=== PATIENT | male | born 1975 | race Caucasian/White ===

== ENCOUNTER → 2020-12-14 08:17 | Outpatient (CLI) | payer BC, SELFPAY ==
[2020-12-14 19:11] LABS: Alanine Aminotransferase 33 IU/L (<50); Albumin 4.3 g/dL (3.5-5.0); Albumin Globulin Ratio 1.4 (1.0-2.8); Alkaline Phosphatase 66 U/L (38-126); Aspartate Aminotransferase 26 IU/L (17-59); Bilirubin Total 0.3 mg/dL (0.2-1.3); Blood Urea Nitrogen 15 mg/dL (9-20); Calcium 9.8 mg/dL (8.4-10.2); Carbon Dioxide 28 mmol/L (22-32); Chloride 104 mmol/L (98-107); Cholesterol 205 mg/dL (140-199); Estimated Glomerular Filt Rate > 60.0 mL/min (>60); Glucose 102 mg/dL (70-100); HDL Cholesterol 38 mg/dL (40-60); HEMOLYSIS < 15 (0-50); LDL Cholesterol Calculated 146 mg/dL (<100); Potassium 4.3 mmol/L (3.4-5.1); Sodium 140 mmol/L (137-145); Total Protein 7.3 g/dL (6.3-8.2); Triglycerides 104 mg/dL (35-150)
[2020-12-14 19:16] LABS: Add Manual Diff / Slide Review NO; Basophils Absolute Auto 100 /uL (0-100); Basophils Percent Auto 0.9 % (0-2); Eosinophils Absolute Auto 200 /uL (0-450); Eosinophils Percent Auto 2.6 % (2-4); Hematocrit 39.3 % (41-53); Hemoglobin 12.9 g/dL (13.5-17.5); Lymphocytes Absolute Auto 2200 /uL (1100-4500); Lymphocytes Percent Auto 35.5 % (25-40); Mean Corpuscular HGB Conc 32.7 % (30-36); Mean Corpuscular Hemoglobin 28.9 PG (26-34); Mean Corpuscular Volume 88.2 fL (80-100); Monocytes Absolute Auto 400 /uL (0-900); Neutrophils Absolute Auto 3400 /uL (1500-7000); Platelet Count 220 X10^3/uL (150-400); Red Blood Cell Count 4.45 X10^6/uL (4.5-5.9); Red Cell Distribution Width 13.7 % (11.6-14.8); White Blood Cell Count 6.2 X10^3/uL (4.5-11.0)
== END ==
PROVIDERS: PCP Family Medicine; Visit Provider Family Medicine
DX: Z13.9 Encounter for screening, unspecified (principal); E78.2 Mixed hyperlipidemia
CPT/HCPCS: 80053; 80061; 85025

== ENCOUNTER → 2022-11-21 11:38 | Outpatient (CLI) | payer OTHER, SELFPAY ==
[2022-11-21 19:36] LABS: Alanine Aminotransferase 33 IU/L (<50); Albumin 4.5 g/dL (3.5-5.0); Albumin Globulin Ratio 1.3 (1.0-2.8); Alkaline Phosphatase 58 U/L (38-126); Aspartate Aminotransferase 24 IU/L (17-59); BUN Creatinine Ratio 27.5 (6-22); Bilirubin Total 0.4 mg/dL (0.2-1.3); Blood Urea Nitrogen 19 mg/dL (9-20); Calcium 9.8 mg/dL (8.4-10.2); Carbon Dioxide 31 mmol/L (22-32); Chloride 98 mmol/L (98-107); Cholesterol 240 mg/dL (140-199); Estimated Glomerular Filt Rate > 60 mL/min (>60); Globulin 3.5 g/dL (1.7-4.1); Glucose 103 mg/dL (70-100); HDL Cholesterol 46 mg/dL (40-60); HEMOLYSIS < 15 (0-50); LDL Cholesterol Calculated 150 mg/dL (<100); Potassium 4.3 mmol/L (3.4-5.1); Sodium 138 mmol/L (137-145); Triglycerides 218 mg/dL (35-150)
[2022-11-21 19:48] LABS: Add Manual Diff / Slide Review NO; Basophils Absolute Auto 0 /uL (0-100); Basophils Percent Auto 0.6 % (0-2); Eosinophils Absolute Auto 200 /uL (0-450); Eosinophils Percent Auto 2.5 % (2-4); Hematocrit 40.6 % (41-53); Hemoglobin 14.2 g/dL (13.5-17.5); Lymphocytes Absolute Auto 2100 /uL (1100-4500); Lymphocytes Percent Auto 33.7 % (25-40); Mean Corpuscular HGB Conc 34.9 % (30-36); Mean Corpuscular Hemoglobin 29.8 PG (26-34); Mean Corpuscular Volume 85.5 fL (80-100); Monocytes Absolute Auto 600 /uL (0-900); Monocytes Percent Auto 9.1 % (3-14); Neutrophils Absolute Auto 3300 /uL (1500-7000); Neutrophils Percent Auto 54.1 % (50-75); Platelet Count 223 X10^3/uL (150-400); Red Blood Cell Count 4.75 X10^6/uL (4.5-5.9); Red Cell Distribution Width 13.7 % (11.6-14.8); White Blood Cell Count 6.1 X10^3/uL (4.5-11.0)
[2022-11-21 20:06] LABS: Prostate Specific Antigen 0.906 ng/mL (0.10-4.00)
[2022-11-23 00:07] LABS: Labcorp Hemoglobin (Hb) A1c 5.9 % (4.8-5.6)
== END ==
PROVIDERS: PCP Family Medicine; Visit Provider Family Medicine
DX: E78.2 Mixed hyperlipidemia (principal); R10.9 Unspecified abdominal pain; R73.9 Hyperglycemia, unspecified; Z12.5 Encounter for screening for malignant neoplasm of prostate; Z13.1 Encounter for screening for diabetes mellitus; Z13.6 Encounter for screening for cardiovascular disorders
CPT/HCPCS: 80053; 80061; 83036; 84153; 85025

== ENCOUNTER 2023-04-02 09:00 | Day surgery (SDC) | payer BC, SELFPAY ==
--- NOTE | 2023-04-02 | PATH_ITS ---
[facility] Accession Number: [id number] No. of containers..03 Tissue . 01 Material submitted: . PART A: gastrointestinal site - GASTRIC POLYPS PART B: colon - DESCENDING POLYPS PART C: colon - RECTO SIGMOID POLYP . 01 Diagnosis: A. Gastric Polyps: Fundic gland polyps. No evidence of Helicobacter organisms on H/E stain. Negative for intestinal metaplasia. Negative for dysplasia and malignancy. . B. Descending Colon Polyps: Tubular adenoma x2. . C. Rectosigmoid Colon Polyp: Vegetable material. No tissue identified. MRV 04/10/20231917 Local . 01 Electronically signed: . Reji Schuster MD, PhD, Pathologist NPI- [id number] . 01 Gross description: . Part A: GASTRIC POLYPS: Received in formalin is 2 fragment(s) of minor, soft tissue measuring 0.3 x 0.2 x 0.2 cm to 0.3 x 0.2 x 0.1 cm submitted entirely in 1 cassette(s) Part B: DESCENDING POLYPS: Received in formalin is multiple fragment(s) of minor, soft tissue measuring 1.0 x 0.5 x 0.2 cm in aggregate submitted entirely in 1 cassette(s) Part C: RECTO SIGMOID POLYP: Received in formalin is 1 fragment(s) of minor, soft tissue measuring 0.1 x 0.1 x 0.1 cm submitted entirely in 1 cassette(s) /AAY 04/03/2023 0145 Local . 01 Pathologist provided ICD-10: K31.7, D12.4 . 01 CPT . 920919, 205669, 373268 Specimen Comment: A courtesy copy of this report has been sent to [phone] Performed at: 01 [facility] [address], [place], [place] [id number] MD Frederick Castillo MD Phone: [phone]
[2023-04-02 09:13] VITALS: BP 118/71; PULSE 67; RESP 16; TEMP 36.4; O2SAT 97; BMI 23.8
[2023-04-02] MEDS: LACTATED RINGERS 1,000 ML 125 ML IV (09:30)
--- NOTE | 2023-04-02 09:35 | P.HP_ITS ---
History of Present Illness History of Present Illness Date Patient Seen: 04/02/23 Time Patient Seen: 09:35 Chief complaint: EGD/Colonoscopy Narrative: I reviewed the note from Wily Connolly. Patient has improved with omeprazole. [facility] Social History household members: spouse Smoking Status: Never smoker alcohol intake: current Meds Home Medications and Allergies Home Medications Medication Instructions Recorded Confirmed Type bupropion HCl 300 mg 24 hr tablet, 300 mg PO QAM 11/30/20 04/02/23 History extended release (Wellbutrin XL) lisdexamfetamine 40 mg capsule 40 mg PO DAILY 11/30/20 04/02/23 History (Vyvanse) omeprazole 20 mg capsule,delayed 20 mg PO 11/08/22 11/08/22 History release Allergies Allergy/AdvReac Type Severity Reaction Status Date / Time No Known Drug Allergies Allergy Verified 11/08/22 15:33 hay fever Allergy Mild Uncoded 11/08/22 15:33 Review of Systems Review of Systems ROS: Yes All systems reviewed with the patient and are negative except as otherwise documented Exam Vital Signs (past 8 hours): - 04/02/23 09:13 Temperature 97.6 F Pulse Rate 67 Respiratory Rate 16 Blood Pressure 118/71 Pulse Oximetry 97 Oxygen Delivery Method Room Air Oxygen Delivery Method Room Air Const General: cooperative HENMT Head: normal to inspection Eyes General: appearance normal, both eyes and all related structures Neck Neck: normal visual inspection Chest Chest: normal inspection of the chest Resp Effort & Inspection: normal respiratory effort Cardio Rate: regular rate GI Inspection: normal to inspection Skin General: no rashes or lesions noted Neuro General: patient alert and patient awake Extrem General: normal to inspection and no pedal edema Psych Appearance: grossly normal Assessment & Plan Assessment & Plan narrative: 47-year-old male with symptoms of reflux for the last couple of years. Diagnostic EGD is pursued today. Additionally we will pursue colonoscopy for colon cancer screening.
--- NOTE | 2023-04-02 09:37 | PM.PREOP ---
Pre-operative Note Interval Note History & Physical reviewed/Exam performed by Physician: Yes Changes to H&P: Yes ASA Class (for procedural sedation): I
--- NOTE | 2023-04-02 10:18 | P.OP.EGD&C_ITS ---
Operative Date/Time/Diagnoses Date of procedure: 04/02/23 Time of procedure: 10:18 Pre-op diagnosis: GERD and colon cancer screening Post-op diagnosis: same Procedure & Clinicians Study performed: EGD with biopsies and colonoscopy with hot and cold snare polypectomy Same procedure as scheduled: Yes Indications: GERD and colon cancer screening Surgeon: Lei Booth Procedure Notes SCOAP/Timeout: Done Procedure in detail: After the risks and benefits were explained, written and verbal informed consent was obtained. The patient was brought into the procedure room and placed into the left lateral decubitus position. Please see anesthesia notes for sedation details. The scope was introduced into the mouth through the bite block and advanced under direct visualization to the 2nd portion of the duodenum. The sc ope was slowly withdrawn carefully examining the mucosa for any defects or lesions. Retroflexed views were accomplished in the stomach. The stomach was decompressed, the scope was then removed from the patient who tolerated the procedure well. The patient was then turned around. A digital rectal exam was accomplished. The scope was introduced into the rectum and advanced to the cecum as identified by the appendiceal orifice and ileocecal valve. The scope was slowly withdrawn to carefully examine the mucosa for any defects or lesions. Multiple direct views were made through the dentate line for exclusion of pathology. The colon was decompressed. The scope was removed from the patient who tolerated the procedure well. Pediatric colonoscope Bowel prep adequate Scope withdrawal time: 10 minutes Sedation minutes: 33 Complications: none Impression: 1. Duodenum: This was normal from the bulb through to the 2nd portion with the exception of moderate tortuosity 2. Stomach: No ulcers no outlet obstruction. No mass lesions. A couple of benign-appearing diminutive polyps were sampled from the proximal gastric body region. Otherwise retroflexed views of the LES were unremarkable. 3. Esophagus: The squamocolumnar junction generally correlated with the top of the gastric folds. GEJ was at 40 cm from the incisors. No acute erosive changes no strictures no mass lesions. No endoscopic suggestion of Barretts. 4. Colon: In the descending colon there was an approximately 7 mm pedunculated polyp removed with hot snare. A little more proximal to this location was a diminutive 4 mm polyp removed with cold snare. In the rectosigmoid region there was a 4-5 mm sessile polyp also removed with cold snare. No additional pathology was appreciated throughout. Endoscopic diagnosis 1. Diminutive proximal gastric polyps 2. Otherwise visually unremarkable EGD 3. Small colon polyps Post-procedure Plan for aftercare: 1. Await histopathology 2. Continue anti-reflux therapy in taper down to famotidine 20 mg once daily as able. (this is [id number]). 3. The timing of repeat colonoscopy will be contingent on pathology results. Disposition: PACU
[2023-04-02 10:25] VITALS: BP 102/72; BP 99/67; PULSE 59; PULSE 67; RESP 12; RESP 22; TEMP 36.9; O2SAT 94; O2SAT 98
[2023-04-02 10:30] VITALS: BP 96/69; PULSE 68; RESP 11; O2SAT 99
[2023-04-02 10:40] VITALS: BP 96/69; PULSE 70; RESP 16; O2SAT 99
--- NOTE | 2023-04-02 10:50 | SUR.PHASEII ---
pt voided prior to departure, delay out dt pt wanting to sit a bit longer
== END 2023-04-02 11:18 | disposition home or self-care (01) ==
PROVIDERS: PCP Family Medicine; Referring Provider Internal Medicine Gastroenterology; Visit Provider Internal Medicine Gastroenterology
PROC: 0DJ08ZZ Inspection of Upper Intestinal Tract, Via Natural or Artificial Opening Endoscopic (ICD-10-PCS; CPT 43235; principal; 2023-04-02 10:00)
PROC: 0DJD8ZZ Inspection of Lower Intestinal Tract, Via Natural or Artificial Opening Endoscopic (ICD-10-PCS; CPT 45378; 2023-04-02 10:00)
DX: Z12.11 Encounter for screening for malignant neoplasm of colon (principal); K21.9 Gastro-esophageal reflux disease without esophagitis; K31.7 Polyp of stomach and duodenum; D12.4 Benign neoplasm of descending colon
CPT/HCPCS: 45385; 43239; J2704

== ENCOUNTER → 2023-11-23 15:17 | Outpatient (CLI) | payer OTHER, SELFPAY ==
--- NOTE | 2023-11-23 | DI.US.S_ITS ---
PROCEDURE: US ABDOMEN LIMITED INDICATIONS: RUQ pain TECHNIQUE: Real-time scanning was performed of the abdominal and retroperitoneal organs, with image documentation. COMPARISON: None. FINDINGS: Liver: The liver measures 13.8 cm in length and demonstrates increased echogenicity. Gallbladder: The gallbladder wall measures 2.7 mm in diameter. Multiple stones are layered in the fundus with shadowing. No pericholecystic fluid or sonographic Mathur sign. A 1.7 cm stone is visualized within the cystic duct. Biliary ducts: Intrahepatic bile ducts are non-dilated. Extrahepatic bile duct caliber measures 3.3 mm. Normal is 6-7 mm or less in diameter, or 10 mm or less post-cholecystectomy. Pancreas: Visualized portions of the pancreas are sonographically normal. The tail the pancreas is not visualized due to bowel gas. Miscellaneous: No free abdominal fluid. IMPRESSION: 1. Increased hepatic echogenicity noted likely related to fatty infiltration of the liver but other sources of hepatocellular disease cannot be excluded. 2. Cholelithiasis. Although there are no findings to suggest choledocholithiasis or acute cholecystitis at this time, a nonmobile 1.7 cm stone is present within the cystic duct. Dictated by: Monse Ingram M.D. on 11/23/2023 at 17:14 Approved by: Monse Ingram M.D. on 11/23/2023 at 17:17
== END ==
PROVIDERS: PCP Family Medicine; Referring Provider Physician Assistant; Visit Provider Physician Assistant
DX: K80.20 Calculus of gallbladder without cholecystitis without obstruction (principal); R10.11 Right upper quadrant pain
CPT/HCPCS: 76705

== ENCOUNTER → 2023-12-13 10:05 | Outpatient (CLI) | payer OTHER, SELFPAY ==
[2023-12-13 19:54] LABS: Add Manual Diff / Slide Review NO; Basophils Absolute Auto 0 /uL (0-100); Basophils Percent Auto 0.5 % (0-2); Eosinophils Absolute Auto 100 /uL (0-450); Eosinophils Percent Auto 2.9 % (2-4); Hematocrit 38.6 % (41-53); Lymphocytes Absolute Auto 1900 /uL (1100-4500); Lymphocytes Percent Auto 38.1 % (25-40); Mean Corpuscular HGB Conc 33.6 % (30-36); Mean Corpuscular Hemoglobin 29.8 PG (26-34); Mean Corpuscular Volume 88.6 fL (80-100); Monocytes Absolute Auto 400 /uL (0-900); Monocytes Percent Auto 8.1 % (3-14); Neutrophils Absolute Auto 2500 /uL (1500-7000); Neutrophils Percent Auto 50.4 % (50-75); Platelet Count 192 X10^3/uL (150-400); Red Blood Cell Count 4.36 X10^6/uL (4.5-5.9); Red Cell Distribution Width 13.6 % (11.6-14.8); White Blood Cell Count 4.9 X10^3/uL (4.5-11.0)
[2023-12-13 20:11] LABS: Alanine Aminotransferase 36 IU/L (<50); Albumin 4.7 g/dL (3.5-5.0); Albumin Globulin Ratio 1.7 (1.0-2.8); Alkaline Phosphatase 58 U/L (38-126); Aspartate Aminotransferase 24 IU/L (17-59); BUN Creatinine Ratio 25.3 (6-22); Bilirubin Total 0.8 mg/dL (0.2-1.3); Blood Urea Nitrogen 19 mg/dL (9-20); Calcium 9.6 mg/dL (8.4-10.2); Carbon Dioxide 31 mmol/L (22-32); Chloride 104 mmol/L (98-107); Cholesterol 205 mg/dL (140-199); Estimated Glomerular Filt Rate > 60 mL/min (>60); Globulin 2.7 g/dL (1.7-4.1); Glucose 96 mg/dL (70-100); HDL Cholesterol 45 mg/dL (40-60); HEMOLYSIS < 15 (0-50); LDL Cholesterol Calculated 135 mg/dL (<100); Potassium 4.2 mmol/L (3.4-5.1); Sodium 140 mmol/L (137-145); Total Protein 7.4 g/dL (6.3-8.2); Triglycerides 124 mg/dL (35-150)
[2023-12-13 20:19] LABS: Hemoglobin A1C% w Est Avg Glu 5.9 % (4.0-6.0)
== END ==
PROVIDERS: PCP Family Medicine; Visit Provider Family Medicine
DX: R73.03 Prediabetes (principal); K21.9 Gastro-esophageal reflux disease without esophagitis; E78.2 Mixed hyperlipidemia; K80.01 Calculus of gallbladder with acute cholecystitis with obstruction
CPT/HCPCS: 80053; 80061; 83036; 85025

== ENCOUNTER 2023-12-28 11:02 | Day surgery (SDC) | payer OTHER, SELFPAY ==
[2023-12-24 14:08] VITALS: BMI 21.7
--- NOTE | 2023-12-27 16:30 | PM.PREOP ---
Pre-operative Note Interval Note History & Physical reviewed/Exam performed by Physician: Yes Changes to H&P: No
[2023-12-28] VITALS (7 sets, daily range): BP systolic 105–146; BP diastolic 67–76; PULSE 52–77; RESP 16–18; TEMP 36.2–36.9; O2SAT 98–100; BMI 21.7
--- NOTE | 2023-12-28 | PATH_ITS ---
[facility] Accession Number: [id number] No. of containers..01 Tissue . 01 Material submitted: . gallbladder - GALLBLADDER . 01 Diagnosis: A. GALLBLADDER, CHOLECYSTECTOMY: Chronic cholecystitis and cholelithiasis. No evidence of malignancy. MRV 01/04/2024 1325 Local . 01 Electronically signed: . Chrissy Yeager MD, Pathologist NPI- [id number] . 01 Gross description: . Received in formalin with two identifiers and gallbladder, is an intact gallbladder 8.7 x 2.8 x 2.5 cm with an unremarkable external surface. The cystic duct margin is inked blue, and no pericystic lymph node is identified. The lumen contains dark green mucoid bile with yellow faceted calculi measuring up to 2.1 cm in greatest dimension, not grossly obstructing the cystic duct. The mucosa is green and velvety with no yellow discoloration, polyps, or lesions identified. The vallecillo average 0.1 cm thick. [employer] sections to include the cystic duct margin and full thickness sections are submitted in cassette A1. ([id number]) /MARIBEL 12/29/2023 2307 Local . 01 Pathologist provided ICD-10: K80.11 . 01 CPT . 692076 Specimen Comment: A courtesy copy of this report has been sent to [phone] Performed at: 01 [address] [address], [place], [place] [id number] MD Frederick Castillo MD Phone: [phone]
[2023-12-28] MEDS: LACTATED RINGERS 1,000 ML 42 ML IV (11:29)
[2023-12-28] MEDS: ACETAMINOPHEN 325 MG TABLET 975 MG PO (11:29)
--- NOTE | 2023-12-28 11:42 | PM.PREOP ---
Pre-operative Note Interval Note History & Physical reviewed/Exam performed by Physician: Yes Changes to H&P: No
[2023-12-28] MEDS: CEFAZOLIN 2 GM/100 ML PREMIX 100 ML IV (11:58)
--- NOTE | 2023-12-28 12:14 | SUR.OPER ---
Supine on padded OR bed, head on pillow, safety belt at thigh, Arms secured on padded arm board <90 degrees abduction. Legs uncrossed. Tape over blanket to secure lower legs.
[2023-12-28] MEDS: BUPIVACAINE 0.5% (PF) 30 ML, EPINEPHrine 0.15 MG INJ (12:17)
--- NOTE | 2023-12-28 12:42 | P.OP_ITS ---
Operative Date/Time/Diagnoses Date of procedure: 12/28/23 Time of procedure: 12:43 Pre-op diagnosis: Biliary colic Post-op diagnosis: same Procedure & Clinicians Procedure: Laparoscopic cholecystectomy Same procedure as scheduled: Yes Indications: Biliary colic Surgeon: Josefina Staton Click Yes if Unassisted: Yes Anesthesia Type: General and Local Operative Notes Findings: Normal-appearing gallbladder with large stones and small stones within. Closure Type: primary Specimen(s): other (Gallbladder) Estimated Blood Loss (mL): 20 Blood products transfused: none Procedure in detail: Preop diagnosis: Symptomatic cholelithiasis, biliary colic Postop diagnosis: Same Operative procedure: Laparoscopic cholecystectomy Anesthetic: General with ET tube intubation with local Surgeon: Katerin Staton MD Findings: Normal-appearing gallbladder with large and small stones within. Procedure: Patient placed in a supine position. Prepped and draped in sterile fashion to expose his abdomen. Infraumbilical port site was placed using open t echnique a 12 mm port. Insufflation began all the ports were placed under direct vision including a 5 mm port in the midepigastrium and 2 5 mm ports in the right lateral abdomen. Gallbladder was grasped pushed cephalad for exposure. Cystic duct was identified, dissected free, clipped twice proximally once distally and transected. Cystic artery was identified once distally twice proximally and transected. Gallbladder was removed from the fossa bed with electrocautery and excellent hemostasis. We had some spillage of bile into the abdomen which was suctioned out prior to end of the procedure. Gallbladder was placed into an Endo-Catch bag and pulled through the infraumbilical port site intact. Surveyed the abdomen for hemostasis. Irrigated to a clear return. And then removed all ports and began closure. Closure consisted of interrupted 0 Vicryl for fascial closure. Skin was closed with a running 4-0 Vicryl. Steri-Strips and sterile dressings were placed. Patient was awakened, extubated, taken to recovery room in stable condition. Needle, instrument, sponge counts were correct. Specimen: Gallbladder Blood loss: 20 mL Complications: none Post-operative Condition: stable Disposition: PACU
[2023-12-28] MEDS: fentaNYL 100 MCG/2 ML INJ (13:00)
[2023-12-28] MEDS: fentaNYL 100 MCG/2 ML INJ IV (13:10)
[2023-12-28] MEDS: ONDANSETRON 4 MG/2 ML INJ IV (13:36)
[2023-12-28] MEDS: KETOROLAC 30 MG/ML VIAL 15 MG IV (13:37)
[2023-12-28] MEDS: OXYCODONE IR 5 MG TABLET PO (13:41)
[2023-12-28] MEDS: hydrOXYzine 50 MG/ML INJ 25 MG IM (13:49)
== END 2023-12-28 14:44 | disposition home or self-care (01) ==
PROVIDERS: Surgery; PCP Family Medicine; Referring Provider Surgery; Visit Provider Surgery
PROC: 0FT44ZZ Resection of Gallbladder, Percutaneous Endoscopic Approach (ICD-10-PCS; CPT 47562; principal; 2023-12-28 11:00)
DX: K80.10 Calculus of gallbladder with chronic cholecystitis without obstruction (principal)
CPT/HCPCS: 47562; 82962; J0171; J0690; J1100; J1885; J2250; J2405; J2704; J3010; J3410; J3490

== ENCOUNTER → 2024-06-27 09:33 | Outpatient (CLI) | payer OTHER, SELFPAY ==
[2024-06-27 17:01] LABS: Add Manual Diff / Slide Review NO; Basophils Absolute Auto 0 /uL (0-100); Basophils Percent Auto 0.5 % (0-2); Eosinophils Absolute Auto 200 /uL (0-450); Eosinophils Percent Auto 2.8 % (2-4); Hematocrit 40.8 % (41-53); Hemoglobin 13.7 g/dL (13.5-17.5); Lymphocytes Absolute Auto 2100 /uL (1100-4500); Lymphocytes Percent Auto 35.3 % (25-40); Mean Corpuscular HGB Conc 33.7 % (30-36); Mean Corpuscular Hemoglobin 29.4 PG (26-34); Mean Corpuscular Volume 87.3 fL (80-100); Monocytes Absolute Auto 500 /uL (0-900); Monocytes Percent Auto 8.6 % (3-14); Neutrophils Absolute Auto 3100 /uL (1500-7000); Neutrophils Percent Auto 52.8 % (50-75); Platelet Count 206 X10^3/uL (150-400); Red Blood Cell Count 4.67 X10^6/uL (4.5-5.9); Red Cell Distribution Width 13.6 % (11.6-14.8); White Blood Cell Count 5.9 X10^3/uL (4.5-11.0)
[2024-06-27 17:05] LABS: HEMOLYSIS < 15 (0-50); Iron 91 ug/dL (49-181)
[2024-06-27 17:06] LABS: Alanine Aminotransferase 54 IU/L (<50); Albumin 4.4 g/dL (3.5-5.0); Albumin Globulin Ratio 1.3 (1.0-2.8); Alkaline Phosphatase 72 U/L (38-126); Aspartate Aminotransferase 31 IU/L (17-59); BUN Creatinine Ratio 22.1 (6-22); Bilirubin Total 0.4 mg/dL (0.2-1.3); Blood Urea Nitrogen 17 mg/dL (9-20); Calcium 9.5 mg/dL (8.4-10.2); Carbon Dioxide 30 mmol/L (22-32); Chloride 104 mmol/L (98-107); Cholesterol 248 mg/dL (140-199); Estimated Glomerular Filt Rate > 60 mL/min (>60); Globulin 3.5 g/dL (1.7-4.1); Glucose 104 mg/dL (70-100); HDL Cholesterol 57 mg/dL (40-60); HEMOLYSIS < 15 (0-50); LDL Cholesterol Calculated 174 mg/dL (<100); Potassium 4.3 mmol/L (3.4-5.1); Sodium 138 mmol/L (137-145); Total Protein 7.9 g/dL (6.3-8.2); Triglycerides 87 mg/dL (35-150)
[2024-06-27 17:07] LABS: Hemoglobin A1C% w Est Avg Glu 5.8 % (4.0-6.0)
[2024-06-27 17:15] LABS: Reticulocyte Count, Percent 0.7 % (0.9-2.6)
[2024-06-27 17:19] LABS: Percent Iron Saturation 33 % (20-50); Total Iron Binding Capacity 278 ug/dL (261-462); Transferrin 251 mg/dL (206-381)
[2024-06-27 17:59] LABS: Vitamin B12 834 pg/mL (239-931)
== END ==
PROVIDERS: PCP Family Medicine; Visit Provider Family Medicine
DX: R73.03 Prediabetes (principal); E78.2 Mixed hyperlipidemia; F32.9 Major depressive disorder, single episode, unspecified; F90.9 Attention-deficit hyperactivity disorder, unspecified type; Z82.49 Family history of ischemic heart disease and other diseases of the circulatory system
CPT/HCPCS: 80053; 80061; 82607; 83036; 83540; 83550; 85025; 85045

== ENCOUNTER → 2025-06-09 10:09 | Outpatient (CLI) | payer OTHER, SELFPAY ==
[2025-06-09 19:24] LABS: Add Manual Diff / Slide Review NO; Hematocrit 39.2 % (41-53); Hemoglobin 13.3 g/dL (13.5-17.5); Lymphocytes Absolute Auto 2100 /uL (1100-4500); Mean Corpuscular HGB Conc 34.1 % (30-36); Mean Corpuscular Hemoglobin 29.7 PG (26-34); Mean Corpuscular Volume 87.3 fL (80-100); Platelet Count 193 X10^3/uL (150-400)
[2025-06-09 19:32] LABS: Blood Urea Nitrogen 19 mg/dL (9-20); Calcium 9.4 mg/dL (8.4-10.2); Carbon Dioxide 28 mmol/L (22-32); Chloride 102 mmol/L (98-107); Cholesterol 202 mg/dL (140-199); Estimated Glomerular Filt Rate > 60 mL/min (>60); Glucose 98 mg/dL (70-99); HDL Cholesterol 45 mg/dL (40-60); HEMOLYSIS < 15 (0-50); Potassium 4.5 mmol/L (3.4-5.1); Sodium 138 mmol/L (137-145); Triglycerides 145 mg/dL (35-150)
== END ==
PROVIDERS: PCP Family Medicine; Visit Provider Family Medicine
DX: E78.2 Mixed hyperlipidemia (principal); R73.03 Prediabetes; Z12.5 Encounter for screening for malignant neoplasm of prostate
CPT/HCPCS: 80048; 80061; 85025; G0103